=== PATIENT | male | born 1995 | race Caucasian/White ===

== ENCOUNTER 2016-12-29 17:40 | Observation (INO) | payer BC, OTHER ==
--- NOTE | 2016-12-29 17:44 | PDOC ---
History of Present Illness - General Chief Complaint: Nausea/Vomiting Stated Complaint: VOMITING FOR 2 DAYS History Source: Patient Exam Limitations: No Limitations - History of Present Illness Initial Comments: This is a 21 yo male with EBV 2 months ago who presents c/o vomiting and vague abdominal pain for the past two days, with inability to tolerate PO solids or fluids. He notes having quit smoking marijuana on Wednesday (was using up to 2g/ day), and on Wednesday he did not eat anything, went to a baseball game and drank 5 beers, and soon after had the onset of vomiting. His pain is diffuse, up to 5/ 10, constant, and does not radiate. He has been vomiting too many times to count (notes 10 episodes between 2 and 3:30 pm today). He additionally has had hot/cold flashes but has not measured his temperature at home. He has been shaky , generally weak, and has had intermittent numbness to the face and hands. He denies back pain, diarrhea, painful urination, testicular pain or swelling. His last bowel movement was on Wednesday prior to the onset, he has not been passing gas, and he has had little urine output. He has no recent sick contacts or questionable food consumptions. Past History - Past Medical History Allergies/Adverse Reactions: Allergies Allergy/AdvReac Type Severity Reaction Status Date / Time No Known Drug Allergies Allergy Verified 12/29/16 17:43 shellfish derived Allergy Verified 12/29/16 17:43 venom-honey bee Allergy Verified 12/29/16 17:43 [bee venom (honey bee)] Home Medications: Ambulatory Orders NK [No Known Home Medication] 12/29/16 - Immunization History Immunization Up to Date: Yes - Psycho/Social/Smoking Cessation Hx Anxiety: No Suicidal Ideation: No Smoking History: Former smoker Have you smoked in the past 12 months: Yes 'Breaking Loose' booklet given: 11/30/15 Hx Alcohol Use: No Substance Use Type: None Review of Systems - Review of Systems Constitutional: Yes: Chills, Weakness (generalized), Other (hot flashes, shakiness). No: Unexplained wgt Loss HEENTM: Yes: Difficulty Swallowing. No: Nose Congestion, Throat Pain Respiratory: No: Cough, Shortness of Breath Cardiac (ROS): No: Chest Pain, Palpitations ABD/GI: Yes: Nausea, Vomiting, Other (abdominal pain). No: Diarrhea : No: Burning, Dysuria, Pain, Testicular Mass, Testicular Swelling, Testicular Pain Musculoskeletal: No: Back Pain, Neck Pain Integumentary: No: Bruising, Rash Neurological: Yes: Numbness. No: Headache, Weakness, Dizziness Endocrine: No: Unexplained Weight Gain, Unexplained Weight Loss *Physical Exam - Physical Exam General Appearance: Yes: Nourished, Appropriately Dressed, Mild Distress, Other (well-appearing young adult male who is conversive but occasionally vomiting thin liquid without blood, not diaphoretic but states overheated and removes shirt) HEENT: positive: EOMI, LEANNE, Normal Voice, Hearing Grossly Normal. negative: Scleral Icterus (R), Scleral Icterus (L), Nasal Congestion Neck: positive: Trachea midline, Supple. negative: Tender, Rigid, Lymphadenopathy (R), Lymphadenopathy (L) Respiratory/Chest: positive: Lungs Clear, Normal Breath Sounds. negative: Respiratory Distress, Crackles, Rhonchi, Stridor, Wheezing Cardiovascular: positive: Regular Rhythm, Tachycardia. negative: Murmur Gastrointestinal/Abdominal: positive: Tender (diffuse mild), Flat, Soft, Other ( very hypoactive bowel sounds). negative: Organomegaly, Pulsatile Mass, Guarding Musculoskeletal: positive: Normal Inspection. negative: Decreased Range of Motion, Vertebral Tenderness Extremity: positive: Normal Capillary Refill, Normal Inspection, Normal Range of Motion. negative: Tender, Cyanosis Integumentary: positive: Normal Color, Dry, Warm. 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 negative: EOM Palsy Medical Decision Making - Medical Decision Making 21 yo male with EBV 2 mo ago p/w vomiting and vague abdominal pain x2 days. Quit marijuana and drank alcohol just prior to the onset, also has not eaten prior to onset. On exam Pt is actively vomiting but this improved with IV Zofran. DDX includes gastritis (viral versus alcoholic), new-onset DM, SBO, pancreatitis. Ordered is CBCD, CMP, Mg, Phos, UA, lipase, serum acetone, also Zofran and Protonix for sxs control. Pt's case is signed out to the oncoming team at end of shift. *DC/Admit/Observation/Transfer Diagnosis at time of Disposition: Vomiting Qualifiers: Vomiting type: unspecified Vomiting Intractability: non-intractable Nausea presence: with nausea Qualified Code(s): R11.2 - Nausea with vomiting, unspecified Abdominal pain Qualifiers: Abdominal location: generalized Qualified Code(s): R10.84 - Generalized abdominal pain - Discharge Dispostion Condition at time of disposition: Stable
[2016-12-29 18:02] VITALS: BMI 21.5
[2016-12-29] MEDS ORDERED: ONDANSETRON 4 MG/2 ML VIAL ONE ×3 (18:02→22:31)
--- NOTE | 2016-12-29 18:05 | PDOC ---
Attending Attestation - Resident Resident Name: Marisol Wilde - ED Attending Attestation I have performed the following: I have examined & evaluated the patient, The case was reviewed & discussed with the resident, I agree w/resident's findings & plan, Exceptions are as noted - HPI HPI: 12/29/16 18:24 21y M no pmhx presents with persistent vomiting x 3 days. Pt states he went to a ball game and had a five beers, was feeling OK initially. he went to restaurant and took a bite of an appetizer and started to feel very nauseus and vomited. He has been having persistent vomiting since with mild diffuse abd pain. No associated fever / chills, does endorse abdmoinal soreness but denies any pain. No diarrhea/BMs for sevral days. PT denies any fever/chills, dysuria , hematuria, back pain. As far as he knows no one else is sick. no recent travel. pt notes he is unable to tolerate anything oral at all. pt notes he has drank in the past, but never on an empty stomach like today. - Physicial Exam PE: 12/29/16 18:28 GENERAL: The patient is awake, alert, and fully oriented, Nontoxic - in no acute distress. HEAD: Normocephalic, atraumatic. EYES: extraocular movements intact, sclera anicteric, conjunctiva clear. ENT: Normal voice, dry mucus membranes NECK: Normal range of motion, supple LUNGS: Breath sounds equal, clear to auscultation bilaterally. No wheezes, no rhonchi, no rales. HEART: Regular rate and rhythm, normal S1 and S2 without murmur, rub or gallop. ABDOMEN: Soft, nontender, normoactive bowel sounds. No guarding, no rebound. No CVA tenderness EXTREMITIES: Normal range of motion, no edema. No clubbing or cyanosis. No cords, erythema, or tenderness. NEUROLOGICAL: No facial assymetry, Normal speech, PSYCH: Normal mood, normal affect. SKIN: Warm, Dry, normal turgor, - Medical Decision Making 12/29/16 18:28 suspect alcohol gastritris vs. pancreatitis vs enteritis will ck labs iwill give fluids for hydration zofran for symptmatic relief no signs of obstruction as his abd is nondistended, soft consider flat plate vs advanced imaging if more pain or vomiting
[2016-12-29] MEDS ORDERED: SODIUM CHLORIDE 1,000 ML IV STA (18:13)
[2016-12-29] MEDS ORDERED: PANTOPRAZOLE SODIUM 40 MG VIAL ONE (18:13)
[2016-12-29] MEDS ORDERED: ONDANSETRON 4 MG/2 ML VIAL IVPUSH ONE (18:13)
[2016-12-29] MEDS ORDERED: PANTOPRAZOLE SODIUM 40 MG in SODIUM CHLORIDE 100 ML IVPB ONE (18:13)
[2016-12-29] MEDS ORDERED: ONDANSETRON 4 MG/2 ML VIAL IVPB ONE (19:17)
[2016-12-29 19:29] LABS: MCH 30.3 pg (25.7-33.7); MCHC 35.1 g/dl (32.0-35.9); MEAN CELL VOLUME 86.2 fl (80-96); MEAN PLT VOLUME 9.3 fl (7.5-11.1); PLATELET COUNT 252 K/MM3 (134-434); RDW 11.5 % (11.9-15.9); WHITE BLOOD COUNT 11.1 K/mm3 (4.0-10.8)
[2016-12-29 19:36] LABS: ALBUMIN 5.8 g/dl (3.5-5.0); ALK PHOS 78 U/L (32-92); ANION GAP 12 (8-16); CALCIUM 9.9 mg/dl (8.4-10.2); CO2 22 mmol/L (22-28); CREATININE 0.9 mg/dl (0.6-1.3); GLUCOSE,RANDOM 125 mg/dl (74-106); MAGNESIUM 2.2 mg/dL (1.8-2.4); SGOT/AST 38 U/L (10-42); SGPT/ALT 27 U/L (10-40); TOT PROT 8.6 g/dl (6.4-8.3)
[2016-12-29 19:59] LABS: PLATELET ESTIMATE ADEQUATE (NORMAL)
[2016-12-29] MEDS ORDERED: POTASSIUM CHLORIDE TABS 20 MEQ TABLET.ER (FP) PO ONE ×2 (20:05→20:09)
--- NOTE | 2016-12-29 20:05 | PDOC ---
*Physical Exam - Vital Signs Last Vital Signs Temp Pulse Resp BP Pulse Ox 98.4 F 93 H 16 142/95 100 12/29/16 17:42 12/29/16 17:42 12/29/16 17:42 12/29/16 17:42 12/29/16 17:42 12/29/16 20:33 ED Treatment Course - LABORATORY CBC & Chemistry Diagram: 12/29/16 18:22 12/29/16 18:22 - ADDITIONAL ORDERS Additional order review: Laboratory Results 12/29/16 12/29/16 12/29/16 18:22 18:22 18:22 Sodium 136 Potassium 3.3 L D Chloride 102 Carbon Dioxide 22 D Anion Gap 12 BUN 21 H D Creatinine 0.9 D Creat Clearance w eGFR > 60 Random Glucose 125 H D Calcium 9.9 Magnesium 2.2 Total Bilirubin 2.0 H D AST 38 D ALT 27 D Alkaline Phosphatase 78 D Total Protein 8.6 H Albumin 5.8 H D Lipase 24 Acetone, Qual Negative 12/29/16 18:22 RBC 5.61 H MCV 86.2 MCHC 35.1 RDW 11.5 L MPV 9.3 D Neutrophils % Y Lymphocytes % Y - Medications Given in the ED: ED Medications Discontinued Medications Generic Name Dose Route Start Last Admin Trade Name Freq PRN Reason Stop Dose Admin Pantoprazole Sodium 40 mg/ 100 mls @ 200 mls/hr 12/29/16 18:13 12/29/16 18:22 Sodium Chloride IVPB 12/29/16 18:42 200 mls/hr ONCE ONE Administration Sodium Chloride 1,000 mls @ 1,000 mls/hr 12/29/16 18:13 12/29/16 18:15 Normal Saline - IV 12/29/16 19:12 1,000 mls/hr ASDIR STA Administration Ondansetron HCl 4 mg 12/29/16 18:13 12/29/16 18:15 Zofran Injection IVPUSH 12/29/16 18:14 4 mg ONCE ONE Administration Ondansetron HCl 4 mg 12/29/16 19:17 12/29/16 19:25 Zofran Injection IVPB 12/29/16 19:18 4 mg ONCE ONE Administration Progress Note - Progress Note Progress Note: Care of this patient was transferred to or at 1900 hrs. from the resident. Patient was seen and treated and evaluated by the resident in conjunction with Dr. troy the attending. Patient came to the emergency room for evaluation and treatment of nausea vomiting. Patient is being hydrated here. Patient is receiving Zofran and basic labs were sent from the ER. Patient does have a mild elevation of his white count of 11.1 with 87% and percent neutrophils. Patient's potassium is slightly decreased at 3.3 sodium was given 40 mEq of Kdur by mouth. Otherwise patient does complain of diffuse muscle weakness and muscle fatigue especially of his extremities. Patient had a phosphate 0.8. Will attempt ER observation status and repletion of phosphorus here. Patient given 2 packets of Neutra-Phos and his phosphate will be repeated at 11:30 PM. In addition to that patient clinically looks dry so he will be given 2 more liters of normal saline. Possible observation admission was discussed with Dr. Bentley who agrees that we should try a ER observation initially to see if we can replete his phosphate here in the ER and possibly discharge patient rather than admit him to an observation bed overnight. 21:35 Patient vomited here in the emergency room and continues to feel nauseous. I'm unable to replete his phosphate orally so he will be admitted to an observation bed on the floor for IV repletion of his phosphate. *DC/Admit/Observation/Transfer Diagnosis at time of Disposition: Hypophosphatemia Vomiting Qualifiers: Vomiting type: unspecified Vomiting Intractability: non-intractable Nausea presence: with nausea Qualified Code(s): R11.2 - Nausea with vomiting, unspecified Abdominal pain Qualifiers: Abdominal location: generalized Qualified Code(s): R10.84 - Generalized abdominal pain - Discharge Dispostion Condition at time of disposition: Stable Admit: Yes - Patient Instructions Printed Discharge Instructions: DI for Nausea -- Adult, DI for Vomiting -- Adult Additional Instructions: Clear liquids only for the next 6 hours.. After that if you have had no further vomiting you may have bananas, rice, applesauce, or toast. If no further vomiting for another 8 hours you may have regular food. If you vomit again then nothing to eat or drink for 2 hours. then start back with the clear liquids. Return to the emergency department immediately with ANY new, persistent or worsening symptoms. You MUST call and follow up with your doctor tomorrow if not better. Please make sure your doctor reviews the results of your emergency evaluation.
[2016-12-29 20:14] LABS: PH,URINE 7.5 (4.5-8); URINE BILIRUBIN 1+ (NEGATIVE); URINE GLUCOSE (UA) Negative (NEGATIVE); URINE KETONE 4+ (NEGATIVE); URINE LEUK ESTERASE Negative (NEGATIVE); URINE NITRITE Negative (NEGATIVE)
[2016-12-29 20:15] LABS: URINE BLOOD Trace-intact (NEGATIVE); URINE PROTEIN 2+ (NEGATIVE)
[2016-12-29 20:16] LABS: URINE APPEARANCE CLOUDY; URINE COLOR YELLOW
[2016-12-29 20:22] LABS: PHOSPHOROUS 0.8 mg/dl (2.5-4.6)
[2016-12-29 21:00] LABS: URINE BACTERIA MODERATE /hpf (NEGATIVE); URINE RBC 0-1 /hpf (0-3)
[2016-12-29] MEDS ORDERED: NAPH,MB-DB/K PH,MBDB POWDER PACKET PO STA (21:00)
[2016-12-29] MEDS ORDERED: SODIUM CHLORIDE 1,000 ML IV ONE ×2 (21:05)
[2016-12-29] MEDS ORDERED: METOCLOPRAMIDE HCL INJECTION 10 MG/2 ML VIAL IVPB ONE (21:08)
[2016-12-29 21:29] LABS: HIV 1 & 2 AB NEGATIVE; HIV 1 AGp24 NEGATIVE
[2016-12-29] MEDS ORDERED: ONDANSETRON 4 MG/2 ML VIAL IVPB PRN (22:48)
[2016-12-29] MEDS ORDERED: SODIUM CHLORIDE 1,000 ML IV SCH ×2 (23:00)
[2016-12-29] MEDS ORDERED: POTASSIUM PHOSPHATE 15 MM in SODIUM CHLORIDE 250 ML IVPB ONE (23:46)
--- NOTE | 2016-12-29 23:50 | HP ---
CHIEF COMPLAINT: Vomiting PCP: not here HISTORY OF PRESENT ILLNESS: This is a 21 year old male with recent episode brian anzario virus who presented to the ED with vomiting x 2 days. He reports that he went to a ball game on Wednesday and had a few beers on an empty stomach and then when he went to a restaurant after he started vomiting. He has been unable to keep down po liquids since. He reports a burning sensation in his epigastric region which has improved. His vomiting was controlled in the ED and he was tolerating ice chips until an attempt was made to give neutraphos and he started vomiting again. ER course was notable for: (1) Phos 0.8 (2) Potassium 3.3 Recent Travel: pt denies PAST MEDICAL HISTORY: Brian Nazario Virus 2 months ago PAST SURGICAL HISTORY: pt denies Social History: Smoking: pt denies tobacco use Alcohol: occasional Drugs: marijuana, 2g / day Family History: father with Polycythemia vera, paternal uncle with same mother alive and well, no medical problems maternal grandmother liver CA maternal uncle with colon CA 1 half sister, no medical problems Allergies No Known Drug Allergies Allergy (Verified 12/29/16 17:43) shellfish derived Allergy (Verified 12/29/16 17:43) venom-honey bee [bee venom (honey bee)] Allergy (Verified 12/29/16 17:43) HOME MEDICATIONS: 3 Medication Instructions Recorded NK [No Known Home Medication] 12/29/16 REVIEW OF SYSTEMS CONSTITUTIONAL: Absent: fever, chills, diaphoresis, generalized weakness, malaise, loss of appetite, weight change HEENT: Absent: rhinorrhea, nasal congestion, throat pain, throat swelling, difficulty swallowing, mouth swelling, ear pain, eye pain, visual changes CARDIOVASCULAR: Absent: chest pain, syncope, palpitations, irregular heart rate, lightheadedness , peripheral edema RESPIRATORY: Absent: cough, shortness of breath, dyspnea with exertion, orthopnea, wheezing, stridor, hemoptysis GASTROINTESTINAL: Present: abdominal pain, nausea, vomiting Absent: abdominal distension, diarrhea, constipation, melena, hematochezia GENITOURINARY: Absent: dysuria, frequency, urgency, hesitancy, hematuria, flank pain, genital pain MUSCULOSKELETAL: Absent: myalgia, arthralgia, joint swelling, back pain, neck pain SKIN: Absent: rash, itching, pallor HEMATOLOGIC/IMMUNOLOGIC: Absent: easy bleeding, easy bruising, lymphadenopathy, frequent infections ENDOCRINE: Absent: unexplained weight gain, unexplained weight loss, heat intolerance, cold intolerance NEUROLOGIC: Absent: headache, focal weakness or paresthesias, dizziness, unsteady gait, seizure, mental status changes, bladder or bowel incontinence PSYCHIATRIC: Absent: anxiety, depression, suicidal or homicidal ideation, hallucinations. PHYSICAL EXAMINATION Vital Signs - 24 hr 3 12/29/16 12/29/16 17:42 22:52 Temperature 98.4 F 100.5 F H Pulse Rate 93 H 78 Respiratory 16 19 Rate Blood Pressure 142/95 163/58 O2 Sat by Pulse 100 100 Oximetry (%) GENERAL: Awake, alert, and fully oriented, in no acute distress. HEAD: Normal with no signs of trauma. EYES: Pupils equal, round and reactive to light, extraocular movements intact, sclera anicteric, conjunctiva clear. No lid lag. EARS, NOSE, THROAT: Ears normal, nares patent, oropharynx clear without exudates. Moist mucous membranes. NECK: Normal range of motion, supple without lymphadenopathy, JVD, or masses. LUNGS: Breath sounds equal, clear to auscultation bilaterally. No wheezes, and no crackles. No accessory muscle use. HEART: Regular rate and rhythm, normal S1 and S2 without murmur, rub or gallop. ABDOMEN: Soft, nontender, not distended, normoactive bowel sounds, no guarding, no rebound, no masses. No hepatomegaly or splenomegaly. MUSCULOSKELETAL: Normal range of motion at all joints. No bony deformities or tenderness. No CVA tenderness. UPPER EXTREMITIES: 2+ pulses, warm, well-perfused. No cyanosis. No clubbing. No peripheral edema. LOWER EXTREMITIES: 2+ pulses, warm, well-perfused. No calf tenderness. No peripheral edema. NEUROLOGICAL: Cranial nerves II-XII intact. Normal speech. Normal gait. PSYCHIATRIC: Cooperative. Good eye contact. Appropriate mood and affect. SKIN: Warm, dry, normal turgor, no rashes or lesions noted, normal capillary refill. Laboratory Results - last 24 hr 3 12/29/16 12/29/16 12/29/16 18:22 18:22 18:22 22:55 WBC 11.1 H D RBC 5.61 H Hgb 17.0 H D Hct 48.4 MCV 86.2 MCH 30.3 MCHC 35.1 RDW 11.5 L Plt Count 252 D MPV 9.3 D Neutrophils % Y Neutrophils % (Manual) 87 H Band Neuts % (Manual) 2 Lymphocytes % Y Lymphocytes % (Manual) 9 Monocytes % (Manual) 2 L Platelet Estimate Adequate Sodium 136 Potassium 3.3 L D Chloride 102 Carbon Dioxide 22 D Anion Gap 12 BUN 21 H D Creatinine 0.9 D Creat Clearance w eGFR > 60 Random Glucose 125 H D Calcium 9.9 Phosphorus 0.8 L* 2.2 L D Magnesium 2.2 Total Bilirubin 2.0 H D AST 38 D ALT 27 D Alkaline Phosphatase 78 D Total Protein 8.6 H Albumin 5.8 H D Lipase 24 Urine Color Urine Appearance Urine pH Ur Specific Sargent Urine Protein Urine Glucose (UA) Urine Ketones Urine Blood Urine Nitrite Urine Bilirubin Urine Urobilinogen Ur Leukocyte Esterase Urine RBC Urine WBC Amorphous Urates Urine Bacteria Acetone, Qual Negative HIV 1&2 Antibody Screen Negative HIV P24 Antigen Negative 3 Urine Color Yellow 12/29/16 20:06 Urine Appearance Cloudy 12/29/16 20:06 Urine pH 7.5 (4.5-8) 12/29/16 20:06 Ur Specific Sargent 1.025 (1.005-1.025) 12/29/16 20:06 Urine Protein 2+ (NEGATIVE) H 12/29/16 20:06 Urine Glucose (UA) Negative (NEGATIVE) 12/29/16 20:06 Urine Ketones 4+ (NEGATIVE) H 12/29/16 20:06 Urine Blood Trace-intact (NEGATIVE) H 12/29/16 20:06 Urine Nitrite Negative (NEGATIVE) 12/29/16 20:06 Urine Bilirubin 1+ (NEGATIVE) H 12/29/16 20:06 Ur Leukocyte Esterase Negative (NEGATIVE) 12/29/16 20:06 Urine RBC 0-1 /hpf (0-3) 12/29/16 20:06 Urine WBC 1-2 (3-5) 12/29/16 20:06 Urine Bacteria Moderate /hpf (NEGATIVE) 12/29/16 20:06 ASSESSMENT/PLAN: 21yM with PMH recent Brian Nazario presented to the ED with vomiting x 2 days. He is admitted for dehydration and electrolyte imbalance. Vomiting - likely due to gastritis, mother reports pt has not attempted to rest stomach and drinks immediately after vomiting which causes him to vomit again. - improved after zofran and reglan. Cont same PRN - Cont NS @ 200cc/hr x 1 more liter then 125cc/hr - cont protonix IVPB daily, transition to po x 1 week on dc Hypokalemia - repleted, repeat in am Hypophosphatemia - improved with hydration - unable to tolerate po repletion. will give 15mmol IV and repeat in am DVT PPX - low risk, expected LOS <48h FEN - fluids as above - BMP, phos and mag in am - clear liquid diet in am Dispo: Pt currently requires inpatient monitoring of his emergent condition. Visit type - Emergency Visit Emergency Visit: Yes ED Registration Date: 12/29/16 Care time: The patient presented to the Emergency Department on the above date and was hospitalized for further evaluation of their emergent condition. - New Patient This patient is new to me today: Yes Date on this admission: 12/29/16 - Critical Care Critical Care patient: No
[2016-12-29] MEDS ORDERED: METOCLOPRAMIDE HCL INJECTION 10 MG/2 ML VIAL IVPB PRN (23:51)
[2016-12-30] MEDS ORDERED: SODIUM CHLORIDE 1,000 ML IV SCH (04:00)
[2016-12-30 06:36] VITALS: BP 124/59; PULSE 73; TEMP 99.1
[2016-12-30 08:08] LABS: BASOPHIL 0.3 % (0-2.0); MCH 29.8 pg (25.7-33.7); MEAN CELL VOLUME 87.7 fl (80-96); MEAN PLT VOLUME 8.8 fl (7.5-11.1); NEUTROPHILS 69.9 % (42.8-82.8); PLATELET COUNT 216 K/MM3 (134-434); RDW 11.7 % (11.9-15.9); WHITE BLOOD COUNT 9.3 K/mm3 (4.0-10.8)
[2016-12-30 08:29] LABS: ANION GAP 10 (8-16); CALCIUM 9.1 mg/dl (8.4-10.2); CO2 23 mmol/L (22-28); CREATININE 0.7 mg/dl (0.6-1.3); GLUCOSE,RANDOM 87 mg/dl (74-106); MAGNESIUM 2.3 mg/dL (1.8-2.4); PHOSPHOROUS 4.4 mg/dl (2.5-4.6)
[2016-12-30] MEDS ORDERED: FOLIC ACID INJECTION - 1 MG, THIAMINE HCL 100 MG, MULTIVIT INJECTION ADULT 10 ML in SOD... IVPB ONE ×2 (09:55→10:30)
[2016-12-30] MEDS ORDERED: PANTOPRAZOLE SODIUM 100 ML IVPB SCH (10:00)
[2016-12-30] MEDS ORDERED: LORazepam 2 MG/ML SDV VIAL IVPUSH ONE (10:20)
--- NOTE | 2016-12-30 10:23 | DS ---
Physical Exam: SUBJECTIVE: Patient seen and examined, reports feeling better, tolerating clear liquid diet OBJECTIVE: Vital Signs Period Temp Pulse Resp BP Sys/Santos Pulse Ox Last 24 Hr 99.1 F-100.5 F 73-78 19-20 124-163/58-59 98-100 PHYSICAL EXAM GENERAL: The patient is awake, alert, and fully oriented, in no acute distress. HEAD: Normal with no signs of trauma. EYES: PERRL, extraocular movements intact, sclera anicteric, conjunctiva clear. ENT: Ears normal, nares patent, oropharynx clear without exudates, moist mucous membranes. NECK: Trachea midline, full range of motion, supple. LUNGS: Breath sounds equal, clear to auscultation bilaterally, no wheezes, no crackles, no accessory muscle use. HEART: Regular rate and rhythm, S1, S2 without murmur, rub or gallop. ABDOMEN: Soft, nontender, nondistended, normoactive bowel sounds, no guarding, no rebound, no hepatosplenomegaly, no masses. EXTREMITIES: 2+ pulses, warm, well-perfused, no edema. NEUROLOGICAL: Cranial nerves II through XII grossly intact. Normal speech, gait not observed. PSYCH: Normal mood, normal affect. SKIN: Warm, dry, normal turgor, no rashes or lesions noted. LABS Laboratory Results - last 24 hr 12/29/16 12/30/16 12/30/16 22:55 07:00 07:00 WBC 9.3 RBC 4.64 Hgb 13.8 D Hct 40.7 D MCV 87.7 MCH 29.8 MCHC 34.0 RDW 11.7 L Plt Count 216 MPV 8.8 Neutrophils % 69.9 Lymphocytes % 20.6 Monocytes % 9.2 Eosinophils % 0.0 D Basophils % 0.3 Sodium 142 Potassium 3.9 Chloride 109 H Carbon Dioxide 23 Anion Gap 10 BUN 16 D Creatinine 0.7 D Random Glucose 87 D Calcium 9.1 Phosphorus 2.2 L D 4.4 D Magnesium 2.3 HOSPITAL COURSE: Date of Admission:12/29/16 Date of Discharge: 12/30/16 Discharge Summary Reason For Visit: VOMITTING ABDOMINAL PAIN Current Active Problems Abdominal pain (Acute) Hypophosphatemia (Acute) Vomiting (Acute) Condition: Improved - Instructions Diet, Activity, Other Instructions: Clear liquids only for the next 6 hours.. After that if you have had no further vomiting you may have bananas, rice, applesauce, or toast. If no further vomiting for another 8 hours you may have regular food. If you vomit again then nothing to eat or drink for 2 hours. then start back with the clear liquids. Return to the emergency department immediately with ANY new, persistent or worsening symptoms. You MUST call and follow up with your doctor tomorrow if not better. Please make sure your doctor reviews the results of your emergency evaluation. Referrals: Frank Welsh MD [Staff Physician] - Disposition: HOME - Home Medications Comprehensive Discharge Medication List: Ambulatory Orders NK [No Known Home Medication] 12/29/16
[2016-12-30 13:13] LABS: URINE MARIJUANA THC POSITIVE ng/ml (CUTOFF=50)
== END 2016-12-30 17:20 | disposition home or self-care (01) ==
LOC: FER 17:40 → FM/S 21:43
PROVIDERS: ADMIT Internal Medicine; ATTEND Nurse Practitioner Family
PROC: 3E033GC Introduction of Other Therapeutic Substance into Peripheral Vein, Percutaneous Approach (ICD-10-PCS; principal; 2016-12-29)
PROC: 3E0337Z Introduction of Electrolytic and Water Balance Substance into Peripheral Vein, Percutaneous Approach (ICD-10-PCS; 2016-12-29)
DX: R11.2 Nausea with vomiting, unspecified (principal); R10.84 Generalized abdominal pain; E83.39 Other disorders of phosphorus metabolism; E78.5 Hyperlipidemia, unspecified; Z91.013 Allergy to seafood; Z91.038 Other insect allergy status; Z87.891 Personal history of nicotine dependence
CPT/HCPCS: 36415; 76700-TC; 80048; 80053; 80307; 81003; 81015; 82009; 83690; 83735; 84100; 85025; 87389; 99285-25; G0378

== ENCOUNTER 2017-01-01 08:36 | Observation (INO) | payer BC, OTHER ==
--- NOTE | 2017-01-01 08:38 | PDOC ---
History of Present Illness - General Chief Complaint: Nausea/Vomiting Stated Complaint: VOMITING History Source: Patient Exam Limitations: No Limitations - History of Present Illness Initial Comments: 01/01/17 08:39 CHIEF COMPLAINT: Vomiting HISTORY OF PRESENT ILLNESS: This is a 21 year old male who was recently admitted to the hospital for cyclical vomiting and hypophosphatemia. He returns to the ER today due to persistent vomiting. He had been feeling well yesterday Went to a [employer] game yesterday Had several bites of a pizza and began vomiting He last took zofran at 10:30 last night No fevers or chills He has not had a bowel movement in the past 5 days He has not smoked marijuanna Recent Travel: pt denies PAST MEDICAL HISTORY: [place] Virus 2 months ago PAST SURGICAL HISTORY: pt denies Social History: Smoking: pt denies tobacco use Alcohol: occasional Drugs: marijuana, 2g / day Family History: Non contributory Allergies NKDA, shellfish REVIEW OF SYSTEMS CONSTITUTIONAL: Absent: fever, chills, diaphoresis, generalized weakness, malaise, loss of appetite, weight change HEENT: Absent: rhinorrhea, nasal congestion, throat pain, throat swelling, difficulty swallowing, mouth swelling, ear pain, eye pain, visual changes CARDIOVASCULAR: Absent: chest pain, syncope, palpitations, irregular heart rate, lightheadedness , peripheral edema RESPIRATORY: Absent: cough, shortness of breath, dyspnea with exertion, orthopnea, wheezing, stridor, hemoptysis GASTROINTESTINAL: Present: abdominal pain, nausea, vomiting Absent: abdominal distension, diarrhea, constipation, melena, hematochezia GENITOURINARY: Absent: dysuria, frequency, urgency, hesitancy, hematuria, flank pain, genital pain MUSCULOSKELETAL: Absent: myalgia, arthralgia, joint swelling, back pain, neck pain SKIN: Absent: rash, itching, pallor HEMATOLOGIC/IMMUNOLOGIC: Absent: easy bleeding, easy bruising, lymphadenopathy, frequent infections ENDOCRINE: Absent: unexplained weight gain, unexplained weight loss, heat intolerance, cold intolerance NEUROLOGIC: Absent: headache, focal weakness or paresthesias, dizziness, unsteady gait, seizure, mental status changes, bladder or bowel incontinence PSYCHIATRIC: Absent: anxiety, depression, suicidal or homicidal ideation, hallucinations. 01/01/17 08:39 GENERAL: The patient is in no acute distress, retching on examination HEAD: Normal with no signs of trauma. EYES: PERRLA, EOMI, sclera anicteric, conjunctiva clear. ENT: Ears normal, nares patent, oropharynx clear without exudates. Moist mucous membranes. NECK: Normal range of motion, supple without lymphadenopathy, JVD, or masses. LUNGS: Breath sounds equal, clear to auscultation bilaterally. No wheezes, and no crackles. HEART:Regular rate and rhythm, normal S1 and S2 without murmur, rub or gallop. ABDOMEN: Soft, nontender, normoactive bowel sounds. No guarding, no rebound. No masses palpable. EXTREMITIES: Normal range of motion, no edema. No clubbing or cyanosis. No erythema, or tenderness. NEUROLOGICAL: Cranial nerves II through XII grossly intact. Normal speech. No focal neurological deficits. MUSCULOSKELETAL: Back non-tender to palpation, no CVA tenderness SKIN: Warm, Dry, normal turgor, no rashes or lesions noted. 01/01/17 08:44 01/01/17 08:45 01/01/17 09:20 Past History - Past Medical History Allergies/Adverse Reactions: Allergies Allergy/AdvReac Type Severity Reaction Status Date / Time No Known Drug Allergies Allergy Verified 01/01/17 08:38 shellfish derived Allergy Verified 01/01/17 08:38 venom-honey bee Allergy Verified 01/01/17 08:38 [bee venom (honey bee)] Home Medications: Ambulatory Orders Ondansetron HCl [Zofran] 4 mg PO TID PRN #30 tablet 12/30/16 Anemia: No - Immunization History Immunization Up to Date: Yes - Psycho/Social/Smoking Cessation Hx Anxiety: No Suicidal Ideation: No Smoking History: Former smoker Have you smoked in the past 12 months: Yes 'Breaking Loose' booklet given: 11/30/15 Hx Alcohol Use: Yes (OCASIONALLY) Drug/Substance Use Hx: Yes (MARIJUANA) Substance Use Type: Marijuana Hx Substance Use Treatment: No ED Treatment Course - LABORATORY CBC & Chemistry Diagram: 01/01/17 09:05 01/01/17 11:38 Medical Decision Making - Medical Decision Making 01/01/17 08:47 Will do labs Will do Abd X ray Will hydrate Will give Zofran for nausea Will re assess 01/01/17 09:33 Laboratory Tests 12/30/16 01/01/17 07:00 09:05 WBC 9.3 7.2 Hgb 13.8 D 17.1 H D Hct 40.7 D 51.0 H D Plt Count 216 245 01/01/17 09:47 Laboratory Tests 12/30/16 01/01/17 07:00 09:05 Sodium 142 135 L Potassium 3.9 3.5 Chloride 109 H Carbon Dioxide 23 19 L Anion Gap 10 18 H BUN 16 D Creatinine 0.7 D 0.9 D Random Glucose 99 Phosphorus 1.4 L D 01/01/17 10:04 Potassium repletion ordered Pt mother concerned about imaging his abdomen Is concerned about just doing an x ray Will order CT I have had a long conversation with mother re: the limitations of CT in a patient who can not have oral contrast and who has a reported shellfish allergy 01/01/17 11:04 CT demonstrates possibly mild diverticulitis Reviewed with pt mother Will contact PMD 01/01/17 12:37 Pt po challenged Repeatedly vomiting Ordered for Reglan Will place on observation *DC/Admit/Observation/Transfer Diagnosis at time of Disposition: Vomiting Qualifiers: Vomiting type: unspecified Vomiting Intractability: intractable Nausea presence : with nausea Qualified Code(s): R11.2 - Nausea with vomiting, unspecified - Discharge Dispostion Condition at time of disposition: Stable Admit: Yes
[2017-01-01] MEDS ORDERED: ONDANSETRON 4 MG/2 ML VIAL IVPB ONE (08:44)
[2017-01-01] MEDS ORDERED: SODIUM CHLORIDE 1,000 ML IV STA ×3 (08:44→11:26)
[2017-01-01] MEDS ORDERED: FAMOTIDINE 20 MG/50 ML IVPB 50 ML IVPB ONE ×2 (08:44→09:05)
[2017-01-01] MEDS ORDERED: ONDANSETRON 4 MG/2 ML VIAL ONE (09:05)
[2017-01-01 09:14] LABS: BASOPHIL 0.7 % (0-2.0); EOSINOPHIL 0.4 % (0-4.5); MCH 30.1 pg (25.7-33.7); MCHC 33.5 g/dl (32.0-35.9); MEAN CELL VOLUME 89.7 fl (80-96); MEAN PLT VOLUME 8.6 fl (7.5-11.1); NEUTROPHILS 65.7 % (42.8-82.8); PLATELET COUNT 245 K/MM3 (134-434); RDW 11.2 % (11.9-15.9); WHITE BLOOD COUNT 7.2 K/mm3 (4.0-10.8)
[2017-01-01 09:30] LABS: ALBUMIN 5.7 g/dl (3.5-5.0); ALK PHOS 74 U/L (32-92); ANION GAP 18 (8-16); BILIRUBIN,TOTAL 2.3 mg/dl (0.2-1.0); CALCIUM 10.5 mg/dl (8.4-10.2); CO2 19 mmol/L (22-28); CREATININE 0.9 mg/dl (0.6-1.3); GLUCOSE,RANDOM 99 mg/dl (74-106); MAGNESIUM 2.2 mg/dL (1.8-2.4); PHOSPHOROUS 1.4 mg/dl (2.5-4.6); SGOT/AST 23 U/L (10-42); SGPT/ALT 24 U/L (10-40); TOT PROT 8.8 g/dl (6.4-8.3)
[2017-01-01] MEDS ORDERED: NAPH,MB-DB/K PH,MBDB POWDER PACKET PO ONE (10:00)
[2017-01-01 10:05] LABS: AMYLASE 37 U/L (25-125)
[2017-01-01 12:01] LABS: ANION GAP 11 (8-16); CALCIUM 8.9 mg/dl (8.4-10.2); CO2 22 mmol/L (22-28); CREATININE 0.8 mg/dl (0.6-1.3); GLUCOSE,RANDOM 82 mg/dl (74-106)
[2017-01-01] MEDS ORDERED: METOCLOPRAMIDE HCL INJECTION 10 MG/2 ML VIAL IVPB ONE (12:26)
--- NOTE | 2017-01-01 12:40 | HP ---
CHIEF COMPLAINT: vomiting PCP: Nanette HISTORY OF PRESENT ILLNESS: Patient is a 21 y/o male with no significant past medical history, recently discharged from this hospital on 12/30/16 for cyclic vomiting and hypophosphatemia. He reports feeling well yesterday and was at a [employer] game and drank soda and ate pizza. He reports vomiting since at 2200 yesterday. Patient reports taking zofran at 2230 with no relief. He reports persistent ongoing vomiting with no abdominal pain and as a result sought evaluation in the emergency department. 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 [employer] Smoking: none Alcohol: social Drugs: smokes 2gm of marijuana daily, last smoked on 12/25 Family History: mother-->alive and well, no medical history father---> polycythemia vera, alive and well Allergies No Known Drug Allergies Allergy (Verified 01/01/17 08:38) shellfish derived Allergy (Verified 01/01/17 08:38) venom-honey bee [bee venom (honey bee)] Allergy (Verified 01/01/17 08:38) HOME MEDICATIONS: Home Medications Medication Instructions Recorded Ondansetron HCl [Zofran] 4 mg PO TID PRN #30 tablet 12/30/16 REVIEW OF SYSTEMS CONSTITUTIONAL: Absent: fever, chills, diaphoresis, generalized weakness, malaise, loss of appetite, weight change HEENT: Absent: rhinorrhea, nasal congestion, throat pain, throat swelling, difficulty swallowing, mouth swelling, ear pain, eye pain, visual changes CARDIOVASCULAR: Absent: chest pain, syncope, palpitations, irregular heart rate, lightheadedness , peripheral edema RESPIRATORY: Absent: cough, shortness of breath, dyspnea with exertion, orthopnea, wheezing, stridor, hemoptysis GASTROINTESTINAL: present: nausea and vomiting Absent: abdominal pain, abdominal distension, , diarrhea, constipation, melena, hematochezia GENITOURINARY: Absent: dysuria, frequency, urgency, hesitancy, hematuria, flank pain, genital pain MUSCULOSKELETAL: Absent: myalgia, arthralgia, joint swelling, back pain, neck pain SKIN: Absent: rash, itching, pallor HEMATOLOGIC/IMMUNOLOGIC: Absent: easy bleeding, easy bruising, lymphadenopathy, frequent infections ENDOCRINE: Absent: unexplained weight gain, unexplained weight loss, heat intolerance, cold intolerance NEUROLOGIC: Absent: headache, focal weakness or paresthesias, dizziness, unsteady gait, seizure, mental status changes, bladder or bowel incontinence PSYCHIATRIC: Absent: anxiety, depression, suicidal or homicidal ideation, hallucinations. PHYSICAL EXAMINATION Vital Signs - 24 hr 01/01/17 01/01/17 01/01/17 08:37 09:10 11:19 Temperature 99.3 F 98.9 F Pulse Rate 98 H Pulse Rate [ 71 Left Radial] Respiratory 20 16 Rate Blood Pressure 154/104 154/104 Blood Pressure 152/98 [Right] O2 Sat by Pulse 98 99 Oximetry (%) GENERAL: Awake, alert, and fully oriented, in no acute distress. HEAD: Normal with no signs of trauma. EYES: Pupils equal, round and reactive to light, extraocular movements intact, sclera anicteric, conjunctiva clear. No lid lag. EARS, NOSE, THROAT: Ears normal, nares patent, oropharynx clear without exudates. dry mucous membranes. NECK: Normal range of motion, supple without lymphadenopathy, JVD, or masses. LUNGS: Breath sounds equal, clear to auscultation bilaterally. No wheezes, and no crackles. No accessory muscle use. HEART: Regular rate and rhythm, normal S1 and S2 without murmur, rub or gallop. ABDOMEN: Soft, nontender, not distended, normoactive bowel sounds, no guarding, no rebound, no masses. No hepatomegaly or splenomegaly. MUSCULOSKELETAL: Normal range of motion at all joints. No bony deformities or tenderness. No CVA tenderness. UPPER EXTREMITIES: 2+ pulses, warm, well-perfused. No cyanosis. No clubbing. No peripheral edema. LOWER EXTREMITIES: 2+ pulses, warm, well-perfused. No calf tenderness. No peripheral edema. NEUROLOGICAL: Cranial nerves II-XII intact. Normal speech. Normal gait. PSYCHIATRIC: Cooperative. Good eye contact. Appropriate mood and affect. SKIN: Warm, dry, normal turgor, no rashes or lesions noted, normal capillary refill. Laboratory Results - last 24 hr 01/01/17 01/01/17 01/01/17 09:05 09:05 09:05 WBC 7.2 RBC 5.69 H D Hgb 17.1 H D Hct 51.0 H D MCV 89.7 MCH 30.1 MCHC 33.5 RDW 11.2 L Plt Count 245 MPV 8.6 Neutrophils % 65.7 Lymphocytes % 24.4 Monocytes % 8.8 Eosinophils % 0.4 D Basophils % 0.7 Sodium 135 L Potassium 3.5 Chloride 98 D Carbon Dioxide 19 L Anion Gap 18 H BUN 12 D Creatinine 0.9 D Creat Clearance w eGFR > 60 Random Glucose 99 Calcium 10.5 H Phosphorus 1.4 L D Magnesium 2.2 Total Bilirubin 2.3 H AST 23 D ALT 24 Alkaline Phosphatase 74 Total Protein 8.8 H Albumin 5.7 H Total Amylase 37 Lipase 23 01/01/17 11:38 WBC RBC Hgb Hct MCV MCH MCHC RDW Plt Count MPV Neutrophils % Lymphocytes % Monocytes % Eosinophils % Basophils % Sodium 138 Potassium 3.2 L Chloride 105 Carbon Dioxide 22 Anion Gap 11 BUN 11 Creatinine 0.8 Creat Clearance w eGFR Random Glucose 82 Calcium 8.9 Phosphorus Magnesium Total Bilirubin AST ALT Alkaline Phosphatase Total Protein Albumin Total Amylase Lipase ASSESSMENT/PLAN: f/e/n - clear liquid diet - replete prn ppx - protonix - oob dispo: requires obsv admission Problem List - Problem (1) Hypophosphatemia Assessment/Plan: - start kphos gtt, repeat bmp at 1800 Code(s): E83.39 - OTHER DISORDERS OF PHOSPHORUS METABOLISM (2) Vomiting Assessment/Plan: - ct scan of abd/pelvis reviewed, benign abdominal exam noted, no evidence of true diverticulitis, strict monitoring, serial abdominal exams - start reglan prn continue IVF - pending urine toxicology - appreciate GI input Code(s): R11.10 - VOMITING, UNSPECIFIED Qualifiers: Vomiting type: unspecified Vomiting Intractability: intractable Nausea presence: with nausea Qualified Code(s): R11.2 - Nausea with vomiting , unspecified Visit type - Emergency Visit Emergency Visit: Yes ED Registration Date: 01/01/17 Care time: The patient presented to the Emergency Department on the above date and was hospitalized for further evaluation of their emergent condition. - New Patient This patient is new to me today: No - Critical Care Critical Care patient: No
[2017-01-01] MEDS ORDERED: METOCLOPRAMIDE HCL INJECTION 10 MG/2 ML VIAL IVPUSH PRN (12:41)
[2017-01-01] MEDS: D5-NS + 20 MEQ KCL - 1,000 ML IV SCH (13:05)
[2017-01-01 13:19] LABS: PH,URINE 6.5 (4.5-8); URINE APPEARANCE Clear; URINE BILIRUBIN 1+ (NEGATIVE); URINE BLOOD Negative (NEGATIVE); URINE COLOR YELLOW; URINE GLUCOSE (UA) Negative (NEGATIVE); URINE KETONE 4+ (NEGATIVE); URINE LEUK ESTERASE Negative (NEGATIVE); URINE NITRITE Negative (NEGATIVE); URINE PROTEIN Negative (NEGATIVE); URINE UROBILINOGEN 0.2 (0.2-1.0)
[2017-01-01] MEDS ORDERED: ONDANSETRON 4 MG/2 ML VIAL IVPB PRN (14:26)
[2017-01-01] MEDS: PANTOPRAZOLE SODIUM 100 ML IVPB SCH (14:35)
[2017-01-01] MEDS ORDERED: WATER IVPB ONE (14:45)
[2017-01-01] MEDS ORDERED: DEXTROSE IVPB ONE (14:45)
[2017-01-01] MEDS ORDERED: POTASSIUM PHOSPHATE IVPB ONE (14:45)
[2017-01-01 15:10] VITALS: BMI 20.2
[2017-01-01 15:34] LABS: URINE MARIJUANA THC POSITIVE ng/ml (CUTOFF=50)
--- NOTE | 2017-01-01 16:27 | CON.GI ---
Consult Consult Specialty:: GI - History of Present Illness History of Present Illness: Mr. Mariee is a 21 year old man with no significant past medical history who was seen in the ER last week for n/v and now is admitted with multiple episodes of n/v. He states he had epigastric abdominal pain after vomiting but that has now resolved. He still however can not tolerate full diet. He denies previous episodes, diarrhea, fever, chills, melena, hematemesis. He has never had an endoscopic examination in the past. 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 colon cancer ? lung cancer ; parenst healthy) Review of Systems - Review of Systems Constitutional: reports: Weakness Gastrointestinal: reports: Abdominal Pain, Nausea, Vomiting Physical Exam-GI Vital Signs: Vital Signs Temperature 98.5 F 01/01/17 14:57 Pulse Rate 66 01/01/17 14:57 Respiratory Rate 16 01/01/17 14:57 Blood Pressure 144/75 01/01/17 14:57 O2 Sat by Pulse Oximetry (%) 99 01/01/17 11:19 Constitutional: Yes: Well Nourished Eyes: Yes: WNL HENT: Yes: WNL Neck: Yes: WNL Cardiovascular: Yes: WNL Respiratory: Yes: WNL ...Auscultate: Yes: Normoactive Bowel Sounds (nontender) Problem List - Problems (1) Abdominal pain Code(s): R10.9 - UNSPECIFIED ABDOMINAL PAIN Qualifiers: Abdominal location: generalized Qualified Code(s): R10.84 - Generalized abdominal pain (2) Vomiting Code(s): R11.10 - VOMITING, UNSPECIFIED Qualifiers: Vomiting type: unspecified Vomiting Intractability: intractable Nausea presence: with nausea Qualified Code(s): R11.2 - Nausea with vomiting , unspecified Assessment/Plan Impression: nausea vomiting in [facility] settimg of marijuana abuse - suspicious for cyclical vomiting syndrome however, other etiology such as peptic ulcer disease and biliary etiology should be excluded. Imaging findings were reviewed I doubt diverticulitis as a diagnosis in this patient. REC: - clear liquid diet , advance to low residue lactose free as tolerated - RUQ sonogram to evaluate the biliary tree - PPI therapy - antiemetics - outpt follow - up for diagnostic egd.
[2017-01-01 19:01] LABS: BASOPHIL 2.4 % (0-2.0); EOSINOPHIL 0.3 % (0-4.5); MCH 29.9 pg (25.7-33.7); MCHC 33.2 g/dl (32.0-35.9); MEAN PLT VOLUME 9.3 fl (7.5-11.1); NEUTROPHILS 55.6 % (42.8-82.8); PLATELET COUNT 199 K/MM3 (134-434); RDW 11.4 % (11.9-15.9)
[2017-01-01 19:02] LABS: ANION GAP 12 (8-16); CALCIUM 9.4 mg/dl (8.4-10.2); CO2 20 mmol/L (22-28); CREATININE 0.8 mg/dl (0.6-1.3); GLUCOSE,RANDOM 84 mg/dl (74-106); MAGNESIUM 2.2 mg/dL (1.8-2.4); PHOSPHOROUS 3.7 mg/dl (2.5-4.6)
[2017-01-02] MEDS: PANTOPRAZOLE SODIUM 100 ML IVPB SCH (10:24)
--- NOTE | 2017-01-02 10:40 | DS ---
Physical Exam: SUBJECTIVE: Patient seen and examined. Nausea has improved and he has been able to keep down clears. No abdominal pain. Had BM for the first time in one week. OBJECTIVE: Vital Signs Period Temp Pulse Resp BP Sys/Santos Pulse Ox Last 24 Hr 98.1 F-98.8 F 56-66 16-18 127-146/65-78 98-99 PHYSICAL EXAM GENERAL: The patient is awake, alert, and fully oriented, in no acute distress. HEAD: Normal with no signs of trauma. EYES: PERRL, extraocular movements intact, sclera anicteric, conjunctiva clear. ENT: Ears normal, nares patent, oropharynx clear without exudates, moist mucous membranes. NECK: Trachea midline, full range of motion, supple. LUNGS: Breath sounds equal, clear to auscultation bilaterally, no wheezes, no crackles, no accessory muscle use. HEART: Regular rate and rhythm, S1, S2 without murmur, rub or gallop. ABDOMEN: Soft, nontender, nondistended, normoactive bowel sounds, no guarding, no rebound, no hepatosplenomegaly, no masses. EXTREMITIES: 2+ pulses, warm, well-perfused, no edema. NEUROLOGICAL: Cranial nerves II through XII grossly intact. Normal speech, gait not observed. PSYCH: Normal mood, normal affect. SKIN: Warm, dry, normal turgor, no rashes or lesions noted. LABS Laboratory Results - last 24 hr 01/01/17 01/01/17 18:10 18:10 WBC 7.0 RBC 4.93 Hgb 14.7 D Hct 44.4 MCV 90.0 MCH 29.9 MCHC 33.2 RDW 11.4 L Plt Count 199 MPV 9.3 Neutrophils % 55.6 Lymphocytes % 33.3 D Monocytes % 8.4 Eosinophils % 0.3 Basophils % 2.4 H D Sodium 136 Potassium 4.3 D Chloride 104 Carbon Dioxide 20 L Anion Gap 12 BUN 10 Creatinine 0.8 Random Glucose 84 Calcium 9.4 Phosphorus 3.7 D Magnesium 2.2 IMAGING: CTAP without oral or intravenous contrast 01/01: Questionable mild diverticulitis at the junction of the distal descending and proximal sigmoid colon. Abdomen u/s 01/01: Very small amount f material within gallbladder lumen which may represent inspissated bile/sludge and/or subtle punctate calculi. Two-week follow-up sonography recommended. HOSPITAL COURSE: This is a 21 year old male with a history of cyclic vomiting in the setting of marijuana use recently discharged from this hospital on 12/30 and placed back in observation on 01/01 for repeated episodes of vomiting and abdominal pain. A CTAP was done without contrast (allergy) and reported as possible mild diverticulitis. He was evaluated by GI here with a recommendation for PPI therapy, imaging of the biliary tree with u/s, clear liquid/lactose- free diet, and outpatient EGD. GI did not have suspicion for true diverticulitis. U/s was done and showed Hypophosphatemia (1.4) was corrected. Today, the patient is feeling well and tolerating clear liquids. He feels well enough to go home and advance his diet as tolerated there. He agrees to follow up with GI. Return precautions reviewed. Date of Admission:01/01/17 Date of Discharge: 01/02/17 Minutes to complete discharge: 45 Discharge Summary Reason For Visit: VOMITING Current Active Problems Vomiting (Acute) Condition: Improved - Instructions Diet, Activity, Other Instructions: -Take Zofran (higher dose prescribed) as needed for nausea and Protonix as prescribed for stomach discomfort. -Start with a liquid diet, then slowly progress to a bland diet (instructions enclosed) as you are feeling better. Avoid milk products. -Follow up with Dr. Phipps (internet specialist) next week. -We recommend a repeat abdominal ultrasound in 2 weeks; you can arrange this with Dr. Phipps or with primary care (referral enclosed) -Avoid marijuana use. -Return here if you are unable to keep down liquids, or for any other concerning symptoms. Referrals: Talia Phipps DO [Staff Physician] - 1 Week (Gastroenterology) Manda Mcgee MD [Staff Physician] - 1 Week (Primary care) Disposition: HOME - Home Medications Comprehensive Discharge Medication List: Ambulatory Orders Ondansetron HCl [Zofran] 4 mg PO TID PRN #30 tablet 12/30/16 This patient is new to me today: Yes Date on this admission: 01/02/17 Emergency Visit: Yes ED Registration Date: 01/01/17 Care time: The patient presented to the Emergency Department on the above date and was hospitalized for further evaluation of their emergent condition. Critical Care patient: No - Discharge Referral Referred to [facility] Yes Physician Referral: Manda Mcgee MD ([facility])
[2017-01-02 14:40] VITALS: BP 127/71; PULSE 55; TEMP 97.9
[2017-01-02] MEDS: D5-NS + 20 MEQ KCL - 1,000 ML IV SCH (14:40)
[2017-01-02 17:36] LABS: ALBUMIN 4.6 g/dl (3.5-5.0); ALK PHOS 58 U/L (32-92); SGOT/AST 19 U/L (10-42); SGPT/ALT 17 U/L (10-40); TOT PROT 6.9 g/dl (6.4-8.3)
[2017-01-02 17:51] LABS: BILIRUBIN,DIRECT < 0.2 mg/dl (0.0-0.2)
== END 2017-01-02 21:08 | disposition home or self-care (01) ==
LOC: FER 08:36 → FM/S 13:18
PROVIDERS: ADMIT Internal Medicine; ATTEND Registered Nurse Emergency
PROC: 3E033GC Introduction of Other Therapeutic Substance into Peripheral Vein, Percutaneous Approach (ICD-10-PCS; principal; 2017-01-01)
PROC: 3E0337Z Introduction of Electrolytic and Water Balance Substance into Peripheral Vein, Percutaneous Approach (ICD-10-PCS; 2017-01-01)
DX: R11.2 Nausea with vomiting, unspecified (principal); E83.39 Other disorders of phosphorus metabolism; R10.84 Generalized abdominal pain; Z91.013 Allergy to seafood; Z87.891 Personal history of nicotine dependence
CPT/HCPCS: 36415; 74176-TC; 76700-TC; 80048; 80053; 80076; 80307; 81003; 82150; 83690; 83735; 84100; 85025; 99285-25; G0378

== ENCOUNTER 2021-01-04 11:40 | Emergency (ER) | payer BC, OTHER ==
[2021-01-04 11:48] VITALS: BP 148/85; PULSE 108; TEMP 98.4
== END 2021-01-04 12:21 | disposition home or self-care (01) ==
LOC: FER 11:40
DX: S93.492A Sprain of other ligament of left ankle, initial encounter (principal); X50.0XXA Overexertion from strenuous movement or load, initial encounter; Y93.67 Activity, basketball
CPT/HCPCS: 73610-TC-LT-FY; 99283-25